=== PATIENT | male | born 1960 | race Caucasian/White ===

== ENCOUNTER 2016-05-27 21:56 | Emergency (ER) | payer OTHER ==
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
[~2016-05-27 21:56] MED LIST: ACCUPRIL PO; ACCUPRIL40 MG PO; ALL DAY ALLERGY10 M3 PO; ALPRAZOLAM PO; ALPRAZOLAM0.5 MG PO; COUMADIN; COUMADIN PO; COUMADIN7.5 MG PO; DEPO-TESTOS200 MG/ML INJ; DILANTIN; DILANTIN PO; DISCONTINUED MED SUBQ; ENDOCET PO; HYDROCHLOROTHIA25 MG PO; HYDROCODON-ACE1 EACH PO; LIPITOR PO; LORTAB 7.5-5001 TAB PO; MIRTAZAPINE45 M1 PO; MOBIC PO; NEXIUM PO; OXYCODONE HCL30 MG PO; PERCOCET 10/3251 TAB PO; PERCOCET10; PERCOCET10 PO; PHENYTOIN SODI100 M4 PO; PRILOSEC; REMERON; REMERON PO; ROBAXIN 750750 MG DOB; ROXICODONE30 M1 PO; VIAGRA PO; [UNRECOGNIZED DRUG - REMARK]
== END 2016-05-27 22:54 | disposition home or self-care (01) ==
LOC: SED 21:56
DX: S29.012A Strain of muscle and tendon of back wall of thorax, initial encounter (principal); F41.9 Anxiety disorder, unspecified; E78.5 Hyperlipidemia, unspecified; V03.99XA Pedestrian with other conveyance injured in collision with car, pick-up truck or van, unspecified whether traffic or nontraffic accident, initial encounter
CPT/HCPCS: 72072; 99283